=== PATIENT | female | born 1950 | race Caucasian/White ===

== ENCOUNTER → 2016-07-31 | Outpatient (CLI) | payer OTHER ==
--- NOTE | 2016-08-01 16:57 | CT ---
History: Left hearing loss Study: Multi [employer] CT facial bones without contrast Findings: There is a 1 centimeter retention cyst or polyp in the right sphenoid sinus. There small p olyp 's or retention cysts in the maxillary sinuses. There is no fluid. The mastoid sinuses are johnson r. The internal artery canals are symmetrical and normal. No temporal orbital year mass is demonstra dima. There is no fracture or depression. The ostiomeatal complexes are patent. The turbinates are un remarkable. There is no mass at the base the brain . Impression: 1. Clear mastoid sinuses and negative temporal bones. 2. Mild maxillary sinus disease and a 1 centimeter retention cyst or polyp in the Right anterior sup erior sphenoid sinus Reported By:
== END ==
LOC: RAD 13:00
PROVIDERS: ATTEND Internal Medicine
DX: H92.02 Otalgia, left ear (principal); H91.8X3 Other specified hearing loss, bilateral
CPT/HCPCS: 70486